=== PATIENT | male | born 1960 ===

== ENCOUNTER → 2018-05-04 | Outpatient (CLI) | payer OTHER ==
[~2018-05-04] MED LIST: CHOL10002; DHEA; DOXY100 PO; FISH1000; LOSA25 PO; Multi-Day Vita1 EACH; Norco 5-325 Ta1 EACH PO; Omeprazole20 M1 PO; Selenium100 MCG PO
[2018-05-04 16:58] LABS: Magnesium, Blood 2.2 mg/dL (1.6-2.4)
[2018-05-04 17:14] LABS: Creatinine, Blood 1.26 mg/dL (0.60-1.20); Glomerular Filtration Rate >60 (60-); Potassium, Blood 3.5 mmol/L (3.5-5.5); Sodium, Blood 141 mmol/L (136-145)
== END | disposition home or self-care (01) ==
LOC: LAB SHORT 15:12 → LAB 15:12
PROVIDERS: Internal Medicine Nephrology
DX: N18.3 Chronic kidney disease, stage 3 (moderate) (principal); D63.1 Anemia in chronic kidney disease
CPT/HCPCS: 82565; 83735; 84132; 84295; 85018

== ENCOUNTER → 2018-05-12 | Outpatient (CLI) | payer OTHER ==
[2018-05-12 12:20] LABS: Albumin, Blood 3.9 g/dL (3.4-5.0); Anion Gap 9 mmol/L (6-16); Blood Urea Nitrogen 22 mg/dL (8-24); Bun/Creatinine Ratio 18.3 (12.0-20.0); CO2, Blood 28 mmol/L (21-32); Calcium, Blood 8.4 mg/dL (8.5-10.1); Chloride, Blood 106 mmol/L (98-108); Glomerular Filtration Rate >60 (60-); Glucose, Blood 93 mg/dL (70-99); Phosphorus, Blood 2.6 mg/dL (2.5-4.9); Potassium, Blood 3.7 mmol/L (3.5-5.5); Sodium, Blood 143 mmol/L (136-145)
== END | disposition home or self-care (01) ==
LOC: LAB SHORT 10:05 → LAB 10:05
PROVIDERS: Internal Medicine Nephrology
DX: N18.3 Chronic kidney disease, stage 3 (moderate) (principal); D63.1 Anemia in chronic kidney disease
CPT/HCPCS: 80069; 85018

== ENCOUNTER 2019-10-03 09:46 | Day surgery (SDC) | payer OTHER ==
[~2019-10-03 09:46] MED LIST changes: +LEVSOD75 PO; +LOSARTAN-HCTZ1 EACH PO; +POTA10T PO
== END 2019-10-03 12:56 | disposition home or self-care (01) ==
PROVIDERS: Internal Medicine Gastroenterology
PROC: 0DBP8ZX Excision of Rectum, Via Natural or Artificial Opening Endoscopic, Diagnostic (ICD-10-PCS; principal; 2019-10-03 11:15)
DX: Z12.11 Encounter for screening for malignant neoplasm of colon (principal); K62.1 Rectal polyp; K64.8 Other hemorrhoids; Z86.010 Personal history of colon polyps; I10 Essential (primary) hypertension; Z79.899 Other long term (current) drug therapy

== ENCOUNTER → 2025-03-22 | Outpatient (CLI) | payer OTHER ==
[~2025-03-22] MED LIST changes: +AMLO10; +Apple Cider Vi300 MG; +Flomax0.4 MG; +VITAMIN D31250 MC2; +[UNRECOGNIZED DRUG - CODE]; +[UNRECOGNIZED DRUG - OTHER]
== END ==
LOC: LAB SHORT 18:16 → LAB 18:16
DX: N39.0 Urinary tract infection, site not specified (principal)
CPT/HCPCS: 87077; 87086; 87186